=== PATIENT | female | born 1995 | race Caucasian/White ===

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

== ENCOUNTER 2017-11-06 15:55 | Outpatient (CLI) | payer MEDICAID ==
[~2017-11-06] VITALS: Ht 157.5 cm; Wt 90.7 kg
[~2017-11-06 15:55] MED LIST changes: +ACHD5005 PO; +AMPH20TA2 PO; +IBUP-2055 PO; +RANI150T11 PO
[2017-11-06] MEDS ORDERED: PREN-37 PO (16:29)
[2017-11-06] MEDS ORDERED: ACET-2267 PO (16:29)
--- NOTE | 2017-11-07 13:46 | Physician Query-Final Dx ---
NASIMA NAVA 11/07/17 1346: Clinic Account Progress/Dx Physician Query: Please give diagnosis Date of Service Nov 06, 2017 at 15:55 ISADORA ARAUJO MD 11/08/17 0817: Clinic Account Progress/Dx DIAGNOSIS: Diagnosis Vaginal bleeding in NASIMA NAVA Nov 07, 2017 13:46 ISADORA ARAUJO MD Nov 08, 2017 08:17
== END 2017-11-06 17:10 | disposition home or self-care (01) ==
LOC: WSo 15:55 → LDRP 15:55 → WSo 17:10
PROVIDERS: ATTEND Obstetrics & Gynecology
DX: O46.92 Antepartum hemorrhage, unspecified, second trimester (principal); Z3A.25 25 weeks gestation of pregnancy
CPT/HCPCS: 99213

== ENCOUNTER 2020-12-05 23:28 | Emergency (ER) | payer MEDICAID ==
[~2020-12-05] VITALS: Ht 158 cm; Wt 97.0 kg
[~2020-12-05 23:28] MED LIST changes: +ACET-2267 PO; -IBUP-2055 PO; +IBUP-2473 PO; +PREN-37 PO
[2020-12-06] MEDS ORDERED: hydrALAZINE (APESOLINE) 20 MG/ML VIAL IV ONE (00:15)
[2020-12-06] MEDS ORDERED: KETOROLAC 30 MG/ML VIAL IVP ONE (00:15)
[2020-12-06] MEDS ORDERED: hydrALAZINE (APESOLINE) 20 MG/ML VIAL ONE (00:16)
[2020-12-06] MEDS ORDERED: KETOROLAC 30 MG/ML VIAL ONE (00:16)
--- NOTE | 2020-12-06 00:18 | ED Headache ---
General Chief Complaint: Head/Cervical Problems Stated Complaint: FEELS LIKE SHE WAS DRUGGED / PRATHER / NAUSEA Nursing Triage Note: C/O HEADACHE, VISUAL CHANGES X30 MIN. REPORTS DRINK AT BAR "TASTED FUNNY" Nursing Sepsis Screen: No Definite Risk History of Present Illness Date Seen by Provider: Dec 06, 2020 Time Seen by Provider: 00:00 Initial Comments Patient is a 25-year-old female who presents to the emergency department with a severe headache. Patient states approximately 30 minutes prior to arrival she got a drink from a local bar and she states that it tasted a little bit funny and was fizzy. Patient states shortly after drinking some of the drink she developed a pounding headache some vision changes and some nausea. Patient is extremely photo and sound sensitive. She states she has never had a headache quite like this before. She is concerned that she might of gotten some sort of a drug in her drink. Patient is 2-1/2 weeks a normal spontaneous vaginal delivery is a . Her date of delivery was November 17. Patient states that she had no complications during or delivery. She had no problems with blood pressure. Patient denies feeling short of breath currently no chest pain. She has some nausea. She is holding her head and appears to be in moderate to significant distress. Pupils are 5 mm and equally reactive to light bilaterally. Blood pressure currently is 203/113. All other review of systems reviewed and negative except as stated above. Timing/Duration: 1 hour Severity/Quality: severe Location: occipital Prior Headaches/Recent Trauma: occasional headaches Modifying Factors: improves with exposure to light Allergies and Home Medications Allergies Coded Allergies: latex (Verified Allergy, Intermediate, RASH, 09/06/16) bupropion (Unverified Allergy, Unknown, 08/20/16) Home Medications Naproxen 500 Mg Tablet, 500 MG PO BID Prescribed by: SARA CRISTINA on 12/06/20 0206 Nitrofurantoin Monohyd/M-Cryst 100 Mg Capsule, 1 TAB PO BID Prescribed by: SARA CRISTINA on 12/06/20 0146 Patient Home Medication List Home Medication List Reviewed: Yes Review of Systems Review of Systems Constitutional: see HPI Eyes: Blurred Vision ("fuzzy vision"), Photophobia Ears, Nose, Mouth, Throat: no symptoms reported Respiratory: no symptoms reported Cardiovascular: no symptoms reported Gastrointestinal: no symptoms reported Genitourinary: no symptoms reported : No Musculoskeletal: no symptoms reported Skin: no symptoms reported Psychiatric/Neurological: Anxiety, Headache Past Frvbwku-Xjmmpx-Oonaov Hx Patient Social History Alcohol Use: Occasionally Uses Smoking Status: Current Everyday Smoker Type Used: Cigarettes Recent Infectious Disease Expo: No Recent Hopitalizations: No Immunizations Up To Date Tetanus Booster (TDap): Unknown PED Vaccines UTD: No Date of Influenza Vaccine: Aug 08, 2017 Seasonal Allergies Seasonal Allergies: No Past Medical History Surgeries: No Respiratory: No Asthma Currently Using CPAP: No Currently Using BIPAP: No Cardiac: No Neurological: No : No Reproductive Disorders: No Female Reproductive Disorders: Denies Sexually Transmitted Disease: No HIV/AIDS: No Genitourinary: No Gastrointestinal: No Musculoskeletal: No Endocrine: No HEENT: No Cancer: No Psychosocial: Yes ADD/ADHD, Anxiety, Depression Integumentary: No Blood Disorders: No Adverse Reaction/Blood Tranf: No Physical Exam Vital Signs Vital Signs - First Documented 12/05/20 23:56 Temp 36.0 Pulse 72 Resp 16 B/P (MAP) 193/105 (134) Pulse Ox 98 O2 Delivery Room Air Capillary Refill : Less Than 3 Seconds Height, Weight, BMI Height: 5'2.00" Weight: 200lbs. 0.0oz. [id number]; 38.00 BMI Method:Stated General Appearance: WD/WN, moderate distress HEENT: PERRL/EOMI, normal ENT inspection Neck: supple Cardiovascular: regular rate, rhythm Respiratory: normal breath sounds, no respiratory distress, no accessory muscle use Gastrointestinal: non tender, soft Extremities: non-tender, normal inspection Psychiatric: alert, oriented x 3 Crainal Nerves: normal hearing, normal speech, PERRL Skin: normal color, diaphoresis Progress/Results/Core Measures Results/Orders Lab Results Laboratory Tests Test 12/06/20 00:10 12/06/20 00:15 12/06/20 01:00 Range/Units Urine Color YELLOW Urine Clarity CLEAR Urine pH 6.0 5-9 Urine Specific [place] >=1.030 1.016-1.022 Urine Protein NEGATIVE 20 H 6-12 MG/DL Urine Glucose (UA) NEGATIVE NEGATIVE Urine Ketones NEGATIVE NEGATIVE Urine Nitrite NEGATIVE NEGATIVE Urine Bilirubin NEGATIVE NEGATIVE Urine Urobilinogen 0.2 < = 1.0 MG/DL Urine Leukocyte Esterase 2+ H NEGATIVE Urine RBC (Auto) 3+ H NEGATIVE Urine RBC 10-25 H /HPF Urine WBC 5-10 H /HPF Urine Squamous Epithelial Cells 5-10 /HPF Urine Crystals NONE /LPF Urine Bacteria MODERATE H /HPF Urine Casts NONE /LPF Urine Mucus LARGE H /LPF Urine Culture Indicated YES Urine Opiates Screen NEGATIVE NEGATIVE Urine Oxycodone Screen NEGATIVE NEGATIVE Urine Methadone Screen NEGATIVE NEGATIVE Urine Propoxyphene Screen NEGATIVE NEGATIVE Urine Barbiturates Screen NEGATIVE NEGATIVE Ur Tricyclic Antidepressants Screen NEGATIVE NEGATIVE Urine Phencyclidine Screen NEGATIVE NEGATIVE Urine Amphetamines Screen POSITIVE H NEGATIVE Urine Methamphetamines Screen POSITIVE H NEGATIVE Urine Benzodiazepines Screen NEGATIVE NEGATIVE Urine Cocaine Screen NEGATIVE NEGATIVE Urine Cannabinoids Screen POSITIVE H NEGATIVE White Blood Count 9.9 4.3-11.0 10^3/uL Red Blood Count 4.62 3.80-5.11 10^6/uL Hemoglobin 13.5 11.5-16.0 g/dL Hematocrit 42 35-52 % Mean Corpuscular Volume 91 80-99 fL Mean Corpuscular Hemoglobin 29 25-34 pg Mean Corpuscular Hemoglobin Concent 32 32-36 g/dL Red Cell Distribution Width 12.5 10.0-14.5 % Platelet Count 266 130-400 10^3/uL Mean Platelet Volume 11.0 9.0-12.2 fL Immature Granulocyte % (Auto) 0 % Neutrophils (%) (Auto) 68 42-75 % Lymphocytes (%) (Auto) 22 12-44 % Monocytes (%) (Auto) 8 0-12 % Eosinophils (%) (Auto) 2 0-10 % Basophils (%) (Auto) 0 0-10 % Neutrophils # (Auto) 6.7 1.8-7.8 10^3/uL Lymphocytes # (Auto) 2.2 1.0-4.0 10^3/uL Monocytes # (Auto) 0.7 0.0-1.0 10^3/uL Eosinophils # (Auto) 0.2 0.0-0.3 10^3/uL Basophils # (Auto) 0.0 0.0-0.1 10^3/uL Immature Granulocyte # (Auto) 0.0 0.0-0.1 10^3/uL Sodium Level 143 135-145 MMOL/L Potassium Level 3.6 3.6-5.0 MMOL/L Chloride Level 107 98-107 MMOL/L Carbon Dioxide Level 22 21-32 MMOL/L Anion Gap 14 5-14 MMOL/L Blood Urea Nitrogen 9 7-18 MG/DL Creatinine 0.73 0.60-1.30 MG/DL Estimat Glomerular Filtration Rate > 60 BUN/Creatinine Ratio 12 Glucose Level 104 70-105 MG/DL Uric Acid 6.7 2.6-7.2 MG/DL Calcium Level 9.6 8.5-10.1 MG/DL Corrected Calcium 9.3 8.5-10.1 MG/DL Magnesium Level 2.1 1.6-2.4 MG/DL Total Bilirubin 0.2 0.1-1.0 MG/DL Aspartate Amino Transf (AST/SGOT) 9 5-34 U/L Alanine Aminotransferase (ALT/SGPT) 13 0-55 U/L Alkaline Phosphatase 74 40-136 U/L Lactate Dehydrogenase 312 H 125-220 U/L Total Protein 7.6 6.4-8.2 GM/DL Albumin 4.4 3.2-4.5 GM/DL Urine Creatinine 184 H 30-125 MG/DL Urine Protein/Creatinine Ratio 0.11 My Orders Orders - SARA CRISTINA MD Ed Iv/Invasive Line Start (12/06/20 00:11) Cbc With Automated Diff (12/06/20 00:11) Comprehensive Metabolic Panel (12/06/20 00:11) Uric Acid (12/06/20 00:11) LDH (12/06/20 00:11) Magnesium (12/06/20 00:11) Ua Culture If Indicated (12/06/20 00:11) Drug Screen Stat (Urine) (12/06/20 00:11) Ketorolac Injection (Toradol Injection) (12/06/20 00:15) Hydralazine Injection (Apresoline Inject (12/06/20 00:15) Ct Head Wo (12/06/20 00:21) Ondansetron Injection (Zofran Injectio (12/06/20 00:30) Ketorolac Injection (Toradol Injection) (12/06/20 00:16) Hydralazine Injection (Apresoline Inject (12/06/20 00:16) Urine Culture (12/06/20 00:10) Ns Iv 1000 Ml (Sodium Chloride 0.9%) (12/06/20 01:15) Urine [place] Prot Creat W/Ratio (12/06/20 01:23) Acetaminophen Tablet (Tylenol Tablet) (12/06/20 01:45) Medications Given in ED Current Medications Medications Dose Ordered Sig/Guillermina Route Start Time Stop Time Status Last Admin Dose Admin Acetaminophen 1,000 mg ONCE ONCE PO 12/06/20 01:45 12/06/20 01:47 DC 12/06/20 01:59 1,000 MG Hydralazine HCl 10 mg ONCE ONCE IV 12/06/20 00:15 12/06/20 00:16 DC 12/06/20 00:23 10 MG Ketorolac Tromethamine 15 mg ONCE ONCE IVP 12/06/20 00:15 12/06/20 00:16 DC 12/06/20 00:23 15 MG Ondansetron HCl 4 mg ONCE ONCE IVP 12/06/20 00:30 12/06/20 00:31 DC 12/06/20 00:41 4 MG Vital Signs/I&O 12/05/20 12/06/20 23:56 00:23 Temp 36.0 36.0 Pulse 72 Resp 16 B/P (MAP) 193/105 (134) Pulse Ox 98 O2 Delivery Room Air Blood Pressure Mean: 134 Progress Progress Note : Time: 01:20 Progress Note Case discussed with Dr. Cordova. I have reviewed all the labs with him as well as discussed my treatment process here in the emergency department. He is agreeable that he does not feel like this patient is at risk for preeclampsia. Her LDH is mildly elevated however her uric acid and magnesium and platelets are all normal as are her LFTs. He recommended that I check a urine protein to creatinine ratio and if it is less than 0.3 she should be stable for discharge. Patient is adamant that she did not use methamphetamine intentionally. I believe the patient is being truthful. I believe that she was intentionally given something in her drink at the bar. Patient is treated in the emergency department with 15 mg of Toradol IV and had significant improvement of her sympt oms. I am going to give her a little additional Tylenol to see if we can sherice her symptoms even further. Patient is feeling better rates her headache at now a "5". 0204 Urine protein to creatinine ratio is less than 0.3 - it is 0.11. patient is good to go home. recommended to drink plenty of fluids; tylenol and naproxen as needed for pain. return precautions given. Departure Impression Primary Impression: Headache Qualified Codes: R51.9 - Headache, unspecified Additional Impressions: Poisoning by methamphetamine Urinary tract infection Qualified Codes: N39.0 - Urinary tract infection, site not specified Disposition: HOME, SELF-CARE Condition: Stable Departure-Patient Inst. Referrals: ARCADIO GOVEA DO (PCP) Primary Care Physician TORRIE ROME MD (Family) Primary Care Physician Patient Instructions: Headache, Adult (DC) Add. Discharge Instructions: Drink plenty of fluids to stay well-hydrated. You can take the naproxen I have prescribed 1 twice daily as needed for headache. Please follow-up with your primary care provider and your OB for your 6-week checkup as scheduled. Return to the emergency room for any worsening symptoms of headache, nausea vomiting or any other emergent concerning symptoms. Scripts Naproxen (Naprosyn) 500 Mg Tablet 500 MG PO BID, #20 TAB 0 Refills Prov: SARA CRISTINA MD 12/06/20 Nitrofurantoin Monohyd/M-Cryst (Macrobid 100 mg Capsule) 100 Mg Capsule 1 TAB PO BID, #10 CAP Prov: SARA CRISTINA MD 12/06/20 SARA CRISTINA MD Dec 06, 2020 00:18
[2020-12-06 00:27] LABS: BASOPHILS % (AUTO) 0 % (0-10); EOSINOPHILS # (AUTO) 0.2 10^3/uL (0.0-0.3); EOSINOPHILS % (AUTO) 2 % (0-10); HEMATOCRIT 42 % (35-52); HEMOGLOBIN 13.5 g/dL (11.5-16.0); LYMPHOCYTES # (AUTO) 2.2 10^3/uL (1.0-4.0); LYMPHOCYTES % (AUTO) 22 % (12-44); MEAN CORPUSCULAR HEMOGLOBIN 29 pg (25-34); MEAN CORPUSCULAR HGB CONC 32 g/dL (32-36); MEAN CORPUSCULAR VOLUME 91 fL (80-99); MONOCYTES # (AUTO) 0.7 10^3/uL (0.0-1.0); MONOCYTES % (AUTO) 8 % (0-12); NEUTROPHILS # (AUTO) 6.7 10^3/uL (1.8-7.8); NEUTROPHILS % (AUTO) 68 % (42-75); PLATELET COUNT 266 10^3/uL (130-400); WHITE BLOOD COUNT 9.9 10^3/uL (4.3-11.0)
[2020-12-06 00:29] LABS: BILIRUBIN,URINE NEGATIVE (NEGATIVE); CLARITY,URINE CLEAR; COLOR,URINE YELLOW; GLUCOSE, URINE (UA) NEGATIVE (NEGATIVE); KETONES,URINE NEGATIVE (NEGATIVE); LEUKOCYTE ESTERASE ,URINE 2+ (NEGATIVE); NITRITE,URINE NEGATIVE (NEGATIVE); PROTEIN,URINE NEGATIVE (NEGATIVE)
[2020-12-06] MEDS ORDERED: ONDANSETRON 4 MG/2 ML (SDV) Z0FRAN IVP ONE (00:30)
[2020-12-06 00:38] LABS: AMPHETAMINE SCREEN, URINE POSITIVE (NEGATIVE); BENZODIAZEPINES SCREEN URINE NEGATIVE (NEGATIVE); COCAINE SCREEN URINE NEGATIVE (NEGATIVE)
[2020-12-06 00:39] LABS: BARBITURATE SCREEN URINE NEGATIVE (NEGATIVE); CANNABINOID SCREEN, URINE POSITIVE (NEGATIVE); METHADONE STAT NEGATIVE (NEGATIVE); METHAMPHETAMINE SCREEN URINE S POSITIVE (NEGATIVE); OPIATE SCREEN URINE NEGATIVE (NEGATIVE); OXYCODONE STAT NEGATIVE (NEGATIVE); PROPOXYPHENE STAT NEGATIVE (NEGATIVE); TRICYCLIC ANTIDEPRESSANTS SCRE NEGATIVE (NEGATIVE)
[2020-12-06 00:40] LABS: BACTERIA,URINE MODERATE /HPF
[2020-12-06 00:41] LABS: ALBUMIN 4.4 GM/DL (3.2-4.5); CHLORIDE 107 MMOL/L (98-107); POTASSIUM 3.6 MMOL/L (3.6-5.0); SODIUM 143 MMOL/L (135-145)
[2020-12-06 00:42] LABS: CALCIUM 9.6 MG/DL (8.5-10.1)
[2020-12-06 00:43] LABS: GLUCOSE 104 MG/DL (70-105); TOTAL PROTEIN 7.6 GM/DL (6.4-8.2)
[2020-12-06 00:44] LABS: CARBON DIOXIDE 22 MMOL/L (21-32)
[2020-12-06 00:45] LABS: BILIRUBIN,TOTAL 0.2 MG/DL (0.1-1.0)
[2020-12-06 00:47] LABS: ALKALINE PHOSPHATASE 74 U/L (40-136); CREATININE SERUM 0.73 MG/DL (0.60-1.30); GFR ESTIMATED > 60
[2020-12-06 00:48] LABS: BUN/CREATININE RATIO 12
[2020-12-06 00:50] LABS: ALANINE AMINOTRANSFERASE 13 U/L (0-55); MAGNESIUM 2.1 MG/DL (1.6-2.4); URIC ACID 6.7 MG/DL (2.6-7.2)
[2020-12-06] MEDS ORDERED: NS IV 1000 ML 1,000 ML IV SCH (01:15)
[2020-12-06] MEDS ORDERED: ACETAMINOPHEN 500 MG TAB (TYLENOL) PO ONE (01:45)
[2020-12-06] MEDS ORDERED: NITR-65 PO (01:46)
[2020-12-06] MEDS ORDERED: NAPR-1071 PO (02:06)
[2020-12-06 02:10] VITALS: BP 146/87
--- NOTE | 2020-12-06 06:18 | Diagnostic Imaging Report ---
PROCEDURE: CT head without contrast. TECHNIQUE: Multiple contiguous axial images were obtained through the brain without the use of intravenous contrast. Auto Exposure Controls were utilized during the CT exam to meet ALARA standards for radiation dose reduction. INDICATION: Severe headache, 2 weeks . There is no mass, shift of the midline or hemorrhage to suggest an acute intracranial abnormality. The ventricles are not abnormally dilated and stable in size when compared to the prior exam of 07/18/2011. The bone windows show no sign of a fracture or of a destructive lesion. The orbits and sinuses show no sign of an acute abnormality. IMPRESSION: 1. There is no evidence for an acute intracranial abnormality. There is no sign of a mass lesion either. 2. If clinical concern regarding an underlying abnormality persists, then MRI would be recommended for further study. 3. I agree with the [facility] interpretation of this exam. Dictated by: Dictated on workstation # [id number]
== END 2020-12-06 02:11 | disposition home or self-care (01) ==
LOC: EDUNIT# 23:28 → ER 23:30
DX: O99.325 Drug use complicating the puerperium (principal); F15.10 Other stimulant abuse, uncomplicated; F12.10 Cannabis abuse, uncomplicated; O86.20 Urinary tract infection following delivery, unspecified; O90.89 Other complications of the puerperium, not elsewhere classified; R03.0 Elevated blood-pressure reading, without diagnosis of hypertension; O99.53 Diseases of the respiratory system complicating the puerperium; J45.909 Unspecified asthma, uncomplicated; O99.335 Smoking (tobacco) complicating the puerperium; F17.210 Nicotine dependence, cigarettes, uncomplicated; Z88.8 Allergy status to other drugs, medicaments and biological substances; Z91.040 Latex allergy status
CPT/HCPCS: 36415; 70450; 80053; 80306; 81000; 82570; 83615; 83735; 84156; 84550; 85025; 87088